=== PATIENT | female | born 1990 | race African-American/Black ===

== ENCOUNTER 2016-10-22 05:08 | Inpatient (IN) ==
[2016-10-22] MEDS ORDERED: MORPHINE 2 MG/1 ML SYRINGE IV STA (05:27)
[2016-10-22] MEDS ORDERED: ONDANSETRON 4 MG/2 ML VIAL IV STA (05:27)
[2016-10-22] MEDS ORDERED: SODIUM CHLORIDE 0.9% 1,000 ML IV STA (05:27)
[2016-10-22 05:35] LABS: Basophils # 0.1 10*3/uL (0.0-0.2); Basophils % 0.5 % (0.0-0.8); Eosinophils # 0.1 10*3/uL (0.0-0.87); Hematocrit 36.2 VOL% (35.7-47.0); Hemoglobin 12.7 GM/DL (12.0-16.0); Immature Granulocytes % 0.3 %; Immature Granulocytes Absolute 0.03 #; Lymphocytes # 2.4 10*3/uL (1.4-4.0); Mean Corpuscular HGB Conc 35.1 GM/DL (32-36); Mean Corpuscular Hemoglobin 31 PG (27-34); Mean Corpuscular Volume 88.7 FL (87-102); Monocytes # 0.7 10*3/uL (0.11-0.8); Monocytes % 6.5 % (1.7-12.7); Neutrophils # 8.1 10*3/uL (1.4-7.4); Neutrophils % 70.7 % (38.7-73.9); Platelet Count 275 T/CUMM (130-400); Red Blood Count 4.08 MC/CUMM (3.8-5.5); Red Cell Distribution Width 13.8 % (9.3-17.3); White Blood Count 11.5 T/CUMM (4-12)
[2016-10-22] MEDS ORDERED: ONDANSETRON 4 MG/2 ML VIAL ONE (05:38)
[2016-10-22] MEDS ORDERED: MORPHINE 2 MG/1 ML SYRINGE ONE (05:38)
[2016-10-22 05:48] LABS: Apearance,Urine Slightly Hazy (Clear); Bacteria,Urine Occasional /HPF (Few); Bilirubin,Urine Negative (Negative); Blood, Urine Small mg/dL (Negative); Glucose,Urine (UA) Negative (Negative); Ketones,Urine Negative (Negative); Mucus,Urine Occasional /LPF (Occasional); Nitrite,Urine Negative (Negative); Protein,Urine Negative; RBC,Urine 4 /HPF (0-4); Squamous Epithelial Cell,Urine Occasional /HPF (0-10); Urine Color Yellow (Yellow); Urine Specific Gravity 1.012 (1.001-1.035); Urine Urobilinogen < 2.0 EU/DL (0.2-1.0); WBC,Urine 19 /HPF (0-6)
--- NOTE | 2016-10-22 05:57 | Emergency Department Note ---
Stefano Burden Brooke, am scribing for, and in the presence of, Jas Wang MD 05:35. IFelipe Kevin Lee, MD, personally performed the services described in this documentation, ascribed by Nataly Agarwal in my presence, and it is both accurate and complete [id number] . Arrival - Arrival ED Nursing Triage Note: Pt to triage with c/o sever abd pain at the bottom of her stomach that started 4 days ago. Pt denies any flank or back pain at this time. Last MP was September 15, 2016. Mode of Arrival: Wheelchair Limitations: No Limitations Source: Patient, RN Notes Reviewed - History of Present Illness Onset (ago): day(s) (4) Date of Last Menstrual Period: September 15, 2016 <Jas Wang - Last Filed: 10/22/16 05:57> <Vaibhav Beltran - Last Filed: 10/22/16 06:59> - Arrival Chief Complaint: Abdominal / Flank Pain Stated Complaint: lower abdominal pain Time Seen by Provider: 10/22/16 05:27 - History of Present Illness HPI Narrative: Patient is a 25 year old female who presents to the ED with c/o RLQ abdominal pain. Patient says the pain has been ongoing for the past four days. She says the pain has worsened with time. She came to the ED, yesterday, but states "it took too long, so I left." Patient says she took three Tylenol when she got home and went to sleep. Upon waking, she says the pain was worse. Patient also complains of having nausea and vomiting but denies diarrhea, constipation, and fever. Patent states "it hurts when I poo and pee." Her last menstrual cycles was September 15. She is not currently taking any control. Patient has PMHx of asthma and ectopic . (Nataly Agarwal) Patient is a 25 year old female who presents to the ED with c/o RLQ abdominal pain. Patient says the pain has been ongoing for the past four days. She says the pain has worsened with time. She came to the ED, yesterday, but states "it took too long, so I left." Patient says she took three Tylenol when she got home and went to sleep. Upon waking, she says the pain was worse. Patient also complains of having nausea and vomiting but denies diarrhea, constipation, and fever. Patent states "it hurts when I poo and pee." Her last menstrual cycles was September 15. She is not currently taking any control. Patient has PMHx of asthma and ectopic . (Jas Wang) Allergies/Adverse Reactions: Allergies Allergy/AdvReac Type Severity Reaction Status Date / Time No Known Allergies Allergy Verified 06/15/16 09:59 Home Medications: Home Medications Medication Instructions Recorded Confirmed Type Ibuprofen 600 mg PO Q6H PRN #30 tablet 10/02/16 Rx Review of System - Review of System 12 point system: reviewed and no additional remarkable complaints except as stated - Review of System Constitutional: Absent: fever Respiratory: Present: respiratory distress Gastrointestinal: Present: abdominal pain (RLQ), nausea, vomiting. Absent: diarrhea, constipation Skin: Absent: rash <Jas Wang - Last Filed: 10/22/16 05:57> Medical,Surgical,& Family Hx - Medical History Respiratory: History of: Asthma (inhaler prn) Reproductive: History of: Ectopic (tube removed 2007) - Surgical History Cardiac Surgeries: Patient Denies: Femoral-Popliteal Bypass Graft, Cardiac Catheterization, Cardiac Surgery, Carotid Endarterectomy, Internal Defibrillator, Vascular Access Devices Thoracic Surgeries: Patient denies;: Organ Transplant, Lobectomy HEENT Surgeries: Patient denies: Carotid Endarterectomy Abdominal Surgeries: Patient denies: Splenectomy - Social History Smoking Status: Current every day smoker Frequency of Alcohol Use: None Type of Drug Use: None <Jas Wang - Last Filed: 10/22/16 05:57> Exam - General General appearance: alert, in no apparent distress - Head Head exam: Present: atraumatic, normocephalic - Eye Eye exam: Present: normal appearance, PERRL, EOMI - ENT ENT exam: Present: normal exam - Neck Neck exam: Present: normal inspection - Chest Chest inspection: Present: normal inspection, symmetric chest wall rise - Respiratory Respiratory exam: Present: normal lung sounds bilaterally - Cardiovascular Cardiovascular exam: Present: regular rate, normal rhythm, normal heart sounds - Abdominal Exam Abdominal exam: Present: soft, tenderness (RLQ), normal bowel sounds. Absent: distention - Extremities Exam Extremities exam: Present: normal inspection - Back Exam Back exam: Present: normal inspection - Neurological Exam Neurological exam: Present: alert, oriented X3 - Psychiatric Psychiatric exam: Present: normal affect, normal mood - Skin Skin exam: Present: warm, dry, intact, normal color <Jas Wang - Last Filed: 10/22/16 05:57> Vital Signs: Vital Signs Temperature 98.5 F 10/22/16 05:17 Pulse Rate 102 H 10/22/16 05:17 Respiratory Rate 18 10/22/16 05:17 Blood Pressure 124/88 10/22/16 05:17 O2 Sat by Pulse Oximetry 100 10/22/16 05:17 Course <Seth Wangzeenat Castrejon - Last Filed: 10/22/16 05:57> - Reevaluation(s) Time: 06:30 <Vaibhav Beltran - Last Filed: 10/22/16 06:59> Course Narrative: Dr. Martin was consulted and saw patient in the ED. He agrees we should admit for observation. (Vaibhav Beltran) - Reevaluation(s) Reevaluation #1: Reexamination by me reveals right lower quadrant tenderness to direct palpation. (Vaibhav Beltran) Results - Labs CBC & BMP: 10/22/16 05:27 Lab Results: I have reviewed the patients labs <Jas Wang - Last Filed: 10/22/16 05:57> - Labs CBC & BMP: 10/22/16 05:27 10/22/16 05:27 Lab Results: I have reviewed the patients labs (Urinalysis shows 15 white blood cells and moderate leukocytes. This is a voided specimen. Urine test is negative) - Diagnostic Findings Procedure: CT Abdomen and Pelvis: report reviewed by me (CT scan cannot rule out or ruling out appendicitis. There are scattered enlarged nodes suggestive of adenitis) <Vaibhav Beltran - Last Filed: 10/22/16 06:59> - Labs Labs: Laboratory Tests 10/22/16 05:27 WBC 11.5 RBC 4.08 Hgb 12.7 Hct 36.2 MCV 88.7 MCH 31 MCHC 35.1 RDW 13.8 Plt Count 275 MPV 10.0 Neut % (Auto) 70.7 Lymph % (Auto) 21.0 L [place] % (Auto) 6.5 Eos % (Auto) 1.0 Baso % (Auto) 0.5 Neut # (Auto) 8.1 H Lymph # (Auto) 2.4 [place] # (Auto) 0.7 Eos # (Auto) 0.1 Baso # (Auto) 0.1 Immature Gran % 0.3 Nucleated RBC % 0.0 Immature Gran # 0.03 Nucleated RBCs # 0.00 Immature Plt Fraction 0.0 Laboratory Tests 10/22/16 05:27 Urine Color Yellow Urine Appearance Slightly hazy Urine pH 6.0 Ur Specific [place] 1.012 Urine Protein Negative Urine Glucose (UA) Negative Urine Ketones Negative Urine Blood Small Urine Nitrate Negative Urine Bilirubin Negative Urine Urobilinogen < 2.0 H Urine Leukocytes Moderate H Urine RBC 4 Urine WBC 19 Ur Squamous Epith Cells Occasional Urine Bacteria Occasional Urine Mucus Occasional Ur Culture Indicated? Results to follow Urine Test Negative (Nataly Agarwal) Laboratory Tests 10/22/16 05:27 WBC 11.5 RBC 4.08 Hgb 12.7 Hct 36.2 MCV 88.7 MCH 31 MCHC 35.1 RDW 13.8 Plt Count 275 MPV 10.0 Neut % (Auto) 70.7 Lymph % (Auto) 21.0 L [place] % (Auto) 6.5 Eos % (Auto) 1.0 Baso % (Auto) 0.5 Neut # (Auto) 8.1 H Lymph # (Auto) 2.4 [place] # (Auto) 0.7 Eos # (Auto) 0.1 Baso # (Auto) 0.1 Immature Gran % 0.3 Nucleated RBC % 0.0 Immature Gran # 0.03 Nucleated RBCs # 0.00 Immature Plt Fraction 0.0 Laboratory Tests 10/22/16 05:27 Urine Color Yellow Urine Appearance Slightly hazy Urine pH 6.0 Ur Specific [place] 1.012 Urine Protein Negative Urine Glucose (UA) Negative Urine Ketones Negative Urine Blood Small Urine Nitrate Negative Urine Bilirubin Negative Urine Urobilinogen < 2.0 H Urine Leukocytes Moderate H Urine RBC 4 Urine WBC 19 Ur Squamous Epith Cells Occasional Urine Bacteria Occasional Urine Mucus Occasional Ur Culture Indicated? Results to follow Urine Test Negative (Jas Wang) Disposition <Jas Wang - Last Filed: 10/22/16 05:57> Case discussed with: patient <Vaibhav Beltran - Last Filed: 10/22/16 06:59> Clinical Impression: Possible appendicitis versus adenitis Disposition: Still a Patient Condition: Guarded Additional Instructions: Admit to Dr. Veronica CRAVEN for observation.
[2016-10-22 05:58] LABS: Albumin 3.8 G/DL (3.4-5.0); Bilirubin,Total 0.4 MG/DL (0.2-1.0); Calcium 9.2 MG/DL (8.5-10.1); Osmolality,Calculated 271.8 MOS/KG (273-304); Potassium 3.9 MMOL/L (3.5-5.1); Total Protein 7.5 G/DL (6.4-8.3)
--- NOTE | 2016-10-22 06:25 | CT Report ---
CT of the abdomen and pelvis with intravenous contrast. No oral contrast was administered. 100 cc Omni 350. Axial images were obtained with sagittal and coronal reconstructions. Indication: Right lower quadrant pain. No previous. The heart is normal in size. Hypoaeration changes are noted at the lung bases. There is no pericardial or pleural effusion. The liver is normal in size and density. No focal liver lesions are seen. There is no intra or extrahepatic biliary ductal dilatation. There is no splenic enlargement. There is no pancreatic enlargement. No focal pancreatic lesions are identified. There is no adrenal enlargement. The kidneys present a normal appearance. The ureters are normal in course and caliber. The urinary bladder presents a normal appearance. There is no free air in the peritoneal cavity. There is minimal free fluid in the pelvis. Along the mesentery and intraperitoneal fat, stranding opacities are seen, mild in severity. The gastric contour is grossly normal. The loops of small intestine are mildly dilated, without wall thickening. There are scattered air-fluid levels present. Within the right lower quadrant mesentery, there are multiple borderline enlarged lymph nodes. The appendix is visible in its entirety, and contains a air along its proximal one third. It is not definitely dilated, but the wall is somewhat indistinct. As is seen elsewhere, there is some inflammation in the fat surrounding it. No appendicolith is seen. The uterus is normal in size. Follicular cysts are seen on each ovary. The colon is not dilated. There is moderate fecal material within the colon. The abdominal aorta is of normal caliber. No bony abnormality is seen. Impression: 1. Bilateral basilar hypoaeration. 2. Mild dilatation and fluid filling of small intestine. Enteritis is a consideration. 3. There is unusual stranding within the mesentery and peritoneal fat, mild in severity but rather diffuse. This could be related to mesenteritis. 4. Right lower quadrant borderline enlarged lymph nodes. In the proper clinical setting, this can indicate mesenteric adenitis. 5. The findings involving the appendix are equivocal. There is air in the proximal one third of the appendix and no dilatation. The wall is somewhat indistinct. There is no appendicolith, there is inflammation in the surrounding fat, however this is not focal and is seen elsewhere in the abdomen and pelvis as well. Appendicitis cannot definitely be ruled in or out. The CT exam was performed using one or more of the following dose reduction techniques: Automated exposure control, adjustment of the mA and/or kV according to patient size, or use of iterative reconstruction technique. PROCEDURE INTERPRETED AT [facility] DEPARTMENT OF RADIOLOGY Final Report Signed by: Dr. Lizzette Reyes
--- NOTE | 2016-10-22 07:07 | General Surg History&Physical ---
Assessment and Plan - Time spent with patient Time spent with patient: Less than 30 minutes (1) Abdominal pain Status: Acute Assessment and plan: I reviewed her CT scan. It is unclear whether this could represent appendicitis or not. For a clinical course that is gone for 4 days the appendix is not very impressive on CT scan. Her white blood cell count is mildly elevated. She does have vaginal discharge I am suspicious that this could be inflammatory disease rather than appendicitis. We will check a pelvic ultrasound and consult RESEARCH AND DEVELOPMENT TECHNICIAN for evaluation. Current Visit: Yes Qualifiers: Abdominal location: right lower quadrant Qualified Code(s): R10.31 - Right lower quadrant pain History of Present Illness Chief complaint: Abdominal pain History of present illness: Ms. Del Rio is a 25 year old female Who for 4 days has had constant right lower quadrant abdominal pain. This pain is moderate in severity. It is worse when she walks and sometimes radiates down her right leg. She has had some anorexia and nausea but no vomiting. She has not had fever or chills. She reports having foul-smelling vaginal discharge. Her last menstrual period was a month ago. Home Medications Medication Instructions Recorded Confirmed Type Ibuprofen 600 mg PO Q6H PRN #30 tablet 10/02/16 Rx Allergies Allergy/AdvReac Type Severity Reaction Status Date / Time No Known Allergies Allergy Verified 06/15/16 09:59 Medical,Surgical,& Family Hx - Medical History Respiratory: History of: Asthma (inhaler prn) Reproductive: History of: Ectopic (tube removed 2007) - Surgical History Cardiac Surgeries: Patient Denies: Femoral-Popliteal Bypass Graft, Cardiac Catheterization, Cardiac Surgery, Carotid Endarterectomy, Internal Defibrillator, Vascular Access Devices Thoracic Surgeries: Patient denies;: Organ Transplant, Lobectomy HEENT Surgeries: Patient denies: Carotid Endarterectomy Abdominal Surgeries: Patient denies: Splenectomy - Family History Family History: noncontributory - Social History Smoking Status: Current every day smoker Frequency of Alcohol Use: None Type of Drug Use: None Exam - Constitutional Vitals: Period Temp Pulse Resp BP Sys/Regalado Pulse Ox Last 24 Hr 98.5 F-98.5 F 102-102 18-18 124-124/88-88 100 General appearance: no acute distress, morbidly obese - Head Head exam: Present: normocephalic - Eye Eye exam: Present: EOMI. Absent: scleral icterus Pupils: Present: ELOISA - ENT Mouth exam: Present: normal voice - Neck Neck exam: Present: trachea midline. Absent: tenderness, thyromegaly - Respiratory Respiratory exam: Present: clear to auscultation bilaterally. Absent: accessory muscle use - Cardiovascular Cardiovascular exam: Present: RRR - GI/Abdominal GI/Abdominal exam: Present: normal bowel sounds, tenderness (Right lower quadrant), soft. Absent: distended, guarding, mass, rebound - Extremities Exam Extremities exam: Absent: edema - Neurological Exam Neurological exam: Present: alert, oriented X3. Absent: motor sensory deficit Speech: Present: normal - Skin Skin exam: Present: normal color - Constitutional Constitutional: Present: anorexia. Absent: chills, fever(s), weight loss - EENT Nose, mouth and throat: Absent: hoarseness - Cardiovascular Cardiovascular: Absent: chest pain at rest, chest pain with activity, dyspnea, dyspnea on exertion, syncope - Respiratory Respiratory: Absent: cough, dyspnea, hemoptysis, dyspnea on exertion, wheezing - Gastrointestinal Gastrointestinal: Present: abdominal pain, nausea. Absent: bloating, constipation, cramping, diarrhea, hematemesis, hematochezia, melena, vomiting, jaundice - Genitourinary Genitourinary: Present: vaginal discharge. Absent: dysuria, hematuria - Musculoskeletal Musculoskeletal: Absent: back pain - Neurological Neurological: Absent: focal weakness, syncope - Endocrine Endocrine: Absent: polyuria Hematologic/Lymphatic: Absent: easy bleeding, easy bruising Results - Labs CBC & BMP: 10/22/16 05:27 10/22/16 05:27 Lab Results: I have reviewed the past 24 hour labs - Diagnostic Findings Procedure: CT Abdomen and Pelvis: image reviewed by me, report reviewed by me
[2016-10-22] MEDS ORDERED: ONDANSETRON 4 MG/2 ML VIAL IV PRN (07:11)
[2016-10-22] MEDS ORDERED: ACETAMINOPHEN 325 MG TABLET PO PRN (07:11)
--- NOTE | 2016-10-22 08:03 | Ultrasound Report ---
Pelvic ultrasound. Indication: Pelvic pain. Transvaginal and transabdominal pelvic imaging was performed to better evaluate the ovaries. The uterus measures mildly prominent, at 9.6 x 4.1 x 5.5 cm. The borders are somewhat indistinct. The endometrium is regular and measures 8.8 mm. The ovaries present a normal appearance. A small amount of free fluid is noted within the cul-de-sac. Impression: Mildly enlarged uterus. The patient was quite tender over the uterus. The borders of the uterus appear somewhat indistinct. Minimal free fluid in the pelvis. The Ultrasound images were captured and stored. PROCEDURE INTERPRETED AT [facility] [place] DEPARTMENT OF RADIOLOGY Final Report Signed by: Dr. Lizzette Reyes
[2016-10-22] MEDS: DEXTROSE 5% NACL 0.45% 1,000 ML IV SCH (08:30)
[2016-10-22] MEDS: LEVOFLOXACIN INJ 750 MG in PREMIX 1 EACH IV SCH (09:18)
[2016-10-22] MEDS: PANTOPRAZOLE 40 MG TABLET PO SCH (09:19)
[2016-10-22] MEDS: metroNIDAZOLE INJ 500 MG in PREMIX 1 EACH IV SCH ×3 (10:43→23:25)
[2016-10-23] MEDS: ENOXAPARIN 40 MG/0.4 ML SYRINGE SUBCUT SCH (01:06)
[2016-10-23] MEDS: DEXTROSE 5% NACL 0.45% 1,000 ML IV SCH ×2 (05:04→05:15)
[2016-10-23 06:13] LABS: Basophils % 0.5 % (0.0-0.8); Eosinophils # 0.3 10*3/uL (0.0-0.87); Eosinophils % 3.8 % (0.00-10.9); Hematocrit 35.6 VOL% (35.7-47.0); Hemoglobin 12.1 GM/DL (12.0-16.0); Immature Granulocytes % 0.4 %; Immature Granulocytes Absolute 0.03 #; Lymphocytes # 2.4 10*3/uL (1.4-4.0); Lymphocytes % 28.8 % (21.3-54.2); Mean Corpuscular Hemoglobin 31 PG (27-34); Mean Platelet Volume 10.3 FL (9.6-12.0); Monocytes # 0.8 10*3/uL (0.11-0.8); Monocytes % 9.9 % (1.7-12.7); Neutrophils # 4.6 10*3/uL (1.4-7.4); Neutrophils % 56.6 % (38.7-73.9); Platelet Count 265 T/CUMM (130-400); Red Blood Count 3.91 MC/CUMM (3.8-5.5); Red Cell Distribution Width 13.9 % (9.3-17.3); White Blood Count 8.2 T/CUMM (4-12)
[2016-10-23 06:49] LABS: Calcium 8.8 MG/DL (8.5-10.1); Osmolality,Calculated 278.3 MOS/KG (273-304); Potassium 4.4 MMOL/L (3.5-5.1)
[2016-10-23] MEDS: LEVOFLOXACIN INJ 750 MG in PREMIX 1 EACH IV SCH (07:24)
--- NOTE | 2016-10-23 08:38 | Consultation ---
Assessment and Plan (1) PID (acute pelvic inflammatory disease) Status: Acute Assessment and plan: Recommend continuation of IV antibitoics x 48 hours followed by discharge with a 14 day course of p.o. Flagyl and Doxycycline provided there are no other indications to prolong admission. Pt may follow-up with Dr. wall in 1 week as an outpt. Current Visit: Yes History of Present Illness - Data of Consult Patient: new to practice Consult date: 10/23/16 Requesting Physician: Orlando Martin Jr. - Consult Narrative Reason for consult: Consulted to evaluate pt secondary to concern for PID History of present illness: Ms. Del Rio is a 25 year old female admitted yesterday due to pelvic pain. Pt states that she has had pain x3-4 days. Pain is crampy like contractions and constant. Pain primarily to the RLQ. Pt denies fever or chills. She admits to a foul smelling vaginal discharge x 4 days. She is sexually active and denies use of contraception or condoms. Pain is rated 8/10. LMP 09/14/2016 CC: Patricio Martin III., - Home Medications and Allergies Home Medications: Home Medications Medication Instructions Recorded Confirmed Type Albuterol Neb [Proventil Neb] 0.63 mg RESP TX Q8H PRN 10/22/16 10/22/16 History Fluticasone/Salmeterol 250-50 1 puff INH DAILY 10/22/16 10/22/16 History [Advair 250-50] risperiDONE [Risperidone] 1 mg PO BID 10/22/16 10/22/16 History traZODone [Desyrel] 150 mg PO BEDTIME 10/22/16 10/22/16 History Allergies/Adverse Reactions: Allergies Allergy/AdvReac Type Severity Reaction Status Date / Time No Known Allergies Allergy Verified 06/15/16 09:59 - Gastrointestinal Gastrointestinal: Present: abdominal pain, nausea - Genitourinary Genitourinary: Present: vaginal discharge Medical,Surgical,& Family Hx - Medical History Respiratory: History of: Asthma (inhaler prn) Reproductive: History of: Ectopic (tube removed 2007) - Surgical History Cardiac Surgeries: Patient Denies: Femoral-Popliteal Bypass Graft, Cardiac Catheterization, Cardiac Surgery, Carotid Endarterectomy, Internal Defibrillator, Vascular Access Devices Thoracic Surgeries: Patient denies;: Organ Transplant, Lobectomy HEENT Surgeries: Patient denies: Carotid Endarterectomy Abdominal Surgeries: Patient denies: Splenectomy - Family History Family History: Reports;: Family Cancer, Family Hypertension, Family Stroke - Social History Smoking Status: Current every day smoker Frequency of Alcohol Use: Occasionally Type of Drug Use: None Exam - Constitutional Vitals: Period Temp Pulse Resp BP Sys/Regalado Pulse Ox Last 24 Hr 97.0 F-98.9 F 69-80 16-20 99-115/58-76 92-100 General appearance: no acute distress - Head Head exam: Present: normocephalic - Respiratory Respiratory exam: Present: clear to auscultation bilaterally - Cardiovascular Cardiovascular exam: Present: regular rate and rhythm - GI/Abdominal GI/Abdominal exam: Present: normal bowel sounds, tenderness (RLQ, supra-pubic. Pelvic exam performed with significant CMT. No mass noted to the adenexa), soft - Extremities Exam Extremities exam: Present: normal inspection - Back Exam Back exam: Present: normal inspection - Neurological Exam Neurological exam: Present: alert, oriented X3 - Psychiatric Psychiatric exam: Present: normal affect, normal mood - Skin Skin exam: Present: normal color, warm Results - Labs CBC & BMP: 10/23/16 05:35 10/23/16 05:35
--- NOTE | 2016-10-23 08:51 | General Surgery Progress Note ---
Assessment and Plan (1) Abdominal pain Status: Acute Assessment and plan: I reviewed her CT scan. It is unclear whether this could represent appendicitis or not. For a clinical course that is gone for 4 days the appendix is not very impressive on CT scan. Her white blood cell count is mildly elevated. She does have vaginal discharge I am suspicious that this could be inflammatory disease rather than appendicitis. We will check a pelvic ultrasound and consult ATHLETIC TURF WORKER for evaluation. 10/23: She has less pain and is tolerating diet. She feels much better. I suspect that this is probably not appendicitis and is more likely pelvic inflammatory disease. I appreciate the input from gynecology. We will continue antibiotics for now. I think that she is probably at a point within the next 24 hours that she could be discharged home on antibiotics by mouth. Her white blood cell count is now normal. I would like to see her nontender prior to discharge. Current Visit: Yes Qualifiers: Abdominal location: right lower quadrant Qualified Code(s): R10.31 - Right lower quadrant pain Subjective Patient reports: Present: feels better, pain is less. Absent: nausea, vomiting , fever Exam - Constitutional Vitals: Period Temp Pulse Resp BP Sys/Regalado Pulse Ox Last 24 Hr 97.0 F-98.9 F 69-80 16-20 99-115/58-76 92-100 General appearance: no acute distress - Head Head exam: Present: normocephalic - Eye Eye exam: Absent: scleral icterus - Respiratory Respiratory exam: Absent: accessory muscle use - GI/Abdominal GI/Abdominal exam: Present: tenderness (Mild in right lower quadrant), soft. Absent: distended, guarding, rebound Results - Labs CBC & BMP: 10/23/16 05:35 10/23/16 05:35 Lab Results: I have reviewed the past 24 hour labs
[2016-10-23] MEDS: PANTOPRAZOLE 40 MG TABLET PO SCH (09:07)
[2016-10-23] MEDS: metroNIDAZOLE INJ 500 MG in PREMIX 1 EACH IV SCH ×2 (09:07→15:29)
[2016-10-24] MEDS: metroNIDAZOLE INJ 500 MG in PREMIX 1 EACH IV SCH ×2 (01:00→10:14)
[2016-10-24] MEDS: ENOXAPARIN 40 MG/0.4 ML SYRINGE SUBCUT SCH (01:00)
[2016-10-24] MEDS: LEVOFLOXACIN INJ 750 MG in PREMIX 1 EACH IV SCH (08:07)
--- NOTE | 2016-10-24 08:40 | General Surgery Progress Note ---
Assessment and Plan (1) Abdominal pain Status: Acute Assessment and plan: I reviewed her CT scan. It is unclear whether this could represent appendicitis or not. For a clinical course that is gone for 4 days the appendix is not very impressive on CT scan. Her white blood cell count is mildly elevated. She does have vaginal discharge I am suspicious that this could be inflammatory disease rather than appendicitis. We will check a pelvic ultrasound and consult GOLF CLUB HEAD INSPECTOR for evaluation. 10/23: She has less pain and is tolerating diet. She feels much better. I suspect that this is probably not appendicitis and is more likely pelvic inflammatory disease. I appreciate the input from gynecology. We will continue antibiotics for now. I think that she is probably at a point within the next 24 hours that she could be discharged home on antibiotics by mouth. Her white blood cell count is now normal. I would like to see her nontender prior to discharge. 10/24: She denies pain this morning. She has no abdominal tenderness. Patient actually left the hospital yesterday evening without telling the nurses and went home and then came back. I think that she should be fine for discharge today. We can discharge her on p.o. antibiotics. We can set her up with follow -up with gynecology. I am happy to follow her up as well if needed. Current Visit: Yes Qualifiers: Abdominal location: right lower quadrant Qualified Code(s): R10.31 - Right lower quadrant pain Subjective Patient reports: Present: feels better. Absent: still having pain, nausea, vomiting, fever Exam - Constitutional Vitals: Period Temp Pulse Resp BP Sys/Regalado Pulse Ox Last 24 Hr 97.0 F-98.3 F 67-112 16-20 100-127/52-93 96-98 General appearance: no acute distress - Head Head exam: Present: normocephalic - Eye Eye exam: Absent: scleral icterus - Respiratory Respiratory exam: Absent: accessory muscle use - GI/Abdominal GI/Abdominal exam: Present: soft. Absent: distended, tenderness, rebound Results - Labs CBC & BMP: 10/23/16 05:35 10/23/16 05:35 Lab Results: I have reviewed the past 24 hour labs Specialty Discharge - Follow Up or Referrals Follow up with: Shilpi Livingston MD [Physician] - 10/30/16 9:45 am
[2016-10-24] MEDS: PANTOPRAZOLE 40 MG TABLET PO SCH (10:14)
--- NOTE | 2016-10-24 11:28 | Discharge Summary ---
Hospital Course - Hospital Course Hospital Course: Patient presented to the emergency department with a four-day history of right lower quadrant abdominal pain which was radiating down her leg associated with anorexia and nausea without vomiting. Vaginal discharge was also reported. Based on CT findings and pelvic ultrasound findings, concern for PID was most likely. IV antibiotics were initiated and [employer] was consulted. Appreciate Dr. Ahuja input with additional concern for PID. Recommended continued IV antibiotics for 48 hours followed by 14 day course of Flagyl and doxycycline outpatient with outpatient follow-up. Patient responded to antibiotics with improvement in her lower abdominal pain. She was afebrile and no leukocytosis noted. Urine cultures grew E. coli. Diagnosis - Discharge Diagnosis (1) Acute cystitis Status: Acute (2) PID (acute pelvic inflammatory disease) Status: Acute Specialty Discharge - Follow Up or Referrals Follow up with: Patricio Martin III., MD [Physician] - (CALL NEEDED) Shilpi Livingston MD [Physician] - 10/30/16 9:45 am Discharge Plan - Discharge Data Disposition: Disch To Home/Self Care Condition at Discharge: Stable Discharge Diet: advance to your usual diet Activity: other (Avoid strenuous activity. Pelvic rest. Avoid sexual intercourse until follow-up with gynecology.) Hygiene: may shower Driving: no restrictions Contact your physician if you experience:: fever over 101, Difficulty voiding, Redness or swelling, Nausea/Vomiting - Discharge Medications New Acetaminophen Tab [Tylenol Tab] 650 mg PO Q6H PRN tablet PRN Reason: Pain Mild (1-3) And/Or Fever Ciprofloxacin Tab [Cipro Tab] 500 mg PO BID #10 tablet Doxycycline Hyclate 100 mg PO BID #28 tablet metroNIDAZOLE TAB [Flagyl Cap/Tab] 500 mg PO TID #42 tablet Continue Albuterol Neb [Proventil Neb] 0.63 mg RESP TX Q8H PRN PRN Reason: Shortness Of Breath/Wheezing Fluticasone/Salmeterol 250-50 [Advair 250-50] 1 puff INH DAILY traZODone [Desyrel] 150 mg PO BEDTIME risperiDONE [Risperidone] 1 mg PO BID - Follow Up or Referral Follow Up: Patricio Martin III., MD [Physician] - (CALL NEEDED) Shilpi Livingston MD [Physician] - 10/30/16 9:45 am - Forms/Instructions Instructions: Pelvic Inflammatory Disease (DC), Pelvic Inflammatory Disease ( GEN), Urinary Tract Infection in Women (DC) Exam - Constitutional Vitals: Period Temp Pulse Resp BP Sys/Regalado Pulse Ox Last 24 Hr 97.0 F-98.3 F 67-112 16-20 100-127/56-93 96-98 General appearance: no acute distress - Respiratory Respiratory exam: Present: clear to auscultation bilaterally - Cardiovascular Cardiovascular exam: Present: regular rate and rhythm - GI/Abdominal GI/Abdominal exam: Present: normal bowel sounds, tenderness (Mild suprapubic), soft. Absent: distended - Extremities Exam Extremities exam: Absent: calf tenderness, edema - Neurological Exam Neurological exam: Present: alert, oriented X3 - Psychiatric Psychiatric exam: Present: normal affect, normal mood Discharge Results Procedures and tests throughout hospitalization: Urine culture grew E. coli -sensitivities reviewed - Imaging and Cardiology Procedure: CT Abdomen and Pelvis: image reviewed by me, report reviewed by me ( Possible enteritis and/or mesenteritis noted. Appendix equivocal. ), Ultrasound : report reviewed by me (Pelvic ultrasound revealed enlarged uterus with tenderness upon exam and free fluid in the pelvis. ) DS: Provider Date of admission: 10/22/16 07:11 Primary care physician: . No PCP Attending physician on admission: Patricio Martin III., Consults: 10/22/16 07:14 Consult to Physician [CONS] Routine Comment: Possible PID Consulting Provider: Shilpi Livingston Consulting Provider Notified: Yes When should Consulting Provider be notified: Now Consult to Specialist Group: OBGYN Date Notified: 10/22/16 Time Notified: 09:09 Consult Notification Comment: ngoc at office called at 8:58. Dr. Livingston in surgery . left message at [place] [facility]. department with Su. She will give message to Dr. Livingston. 10/22/16 09:45 Consult to Pastoral Services [CONS] Routine Comment: Pastoral Screen: Request Transfer Station Attendant Visit Pastoral Screen Source of Request: Patient Discharging clinician: Lianne Gonzalez PA-C
[2016-10-24 11:40] VITALS: BP 125/73
== END 2016-10-24 12:47 | disposition home or self-care (01) | DRG 531 ==
LOC: N.ED 05:08 → N.EDINP 07:11 → N.3E 07:51
PROVIDERS: ADMIT Surgery; ATTEND Surgery